=== PATIENT | female | born 1975 | race Caucasian/White ===

== ENCOUNTER 2020-12-27 13:04 | Outpatient (REF) | payer MEDICAID, SELFPAY ==
--- NOTE | ~2020-12-27 | XR_ITS ---
EXAMINATION: XR LUMBOSACRAL SPINE CLINICAL INFORMATION: Low back pain COMPARISON: None TECHNIQUE: Three views of the lumbosacral spine. FINDINGS: There is normal lumbar lordosis. The vertebral heights, alignment and disc heights are normal. No visible acute fracture, dislocation or subluxation seen. There is mild ventral spondylosis at L3-L4 disc level. The paravertebral soft tissues are normal. The SI joints are normal. XR/XR lumbar spine 2-3V IMPRESSION: Ventral spondylosis L3-L4 disc level. No visible acute fracture, dislocation or lytic process seen.
== END 2020-12-27 13:05 | disposition home or self-care (01) ==
LOC: HO.LAB 13:04
PROVIDERS: Visit Provider Family Medicine
DX: M54.5 Low back pain (principal); R10.9 Unspecified abdominal pain
CPT/HCPCS: 72100

== ENCOUNTER 2022-02-07 08:29 | Outpatient (REF) | payer MEDICAID, SELFPAY | END 2022-02-07 08:30 | disposition home or self-care (01) | LOC: HO.US 08:29 | PROVIDERS: PCP Family Medicine; Visit Provider Nurse Practitioner Primary Care | DX: Z13.89 Encounter for screening for other disorder (principal) ==

== ENCOUNTER 2022-02-25 08:07 | Outpatient (REF) | payer MEDICAID, SELFPAY ==
--- NOTE | ~2022-02-25 | US_ITS ---
EXAMINATION: US ABDOMEN COMPLETE CLINICAL INFORMATION: Right lower quadrant and epigastric pain. COMPARISON: CT abdomen and pelvis 06/08/2006 (report only). TECHNIQUE: Real-time imaging of the abdominal viscera. FINDINGS: PANCREAS: Normal. ABDOMINAL AORTA: The proximal, mid, and distal segments are normal in caliber. INFERIOR VENA CAVA: Visualized portions are normal. LIVER: The liver is normal in size. The liver contour is normal. Liver echotexture is normal. No focal hepatic lesion. There is no intrahepatic biliary duct dilatation seen. GALLBLADDER: The gallbladder is physiologically distended. Multiple mobile gallstones are present. No evidence of gallbladder wall thickening or pericholecystic fluid. COMMON BILE DUCT: Normal in caliber measuring 0.2 cm in diameter. RIGHT KIDNEY: Normal. No hydronephrosis. No renal calculi or focal parenchymal lesions. The kidney measures 11.3 cm in maximum dimension. LEFT KIDNEY: Normal. No hydronephrosis. No renal calculi or focal parenchymal lesions. The kidney measures 11.8 cm in maximum dimension. SPLEEN: Normal. The spleen measures 9.7 cm in maximum dimension. FREE FLUID: None. US/US abdomen complete IMPRESSION: Gallstones.
== END 2022-02-25 08:08 | disposition home or self-care (01) ==
LOC: HO.US 08:07
PROVIDERS: PCP Family Medicine; Visit Provider Nurse Practitioner Primary Care
DX: R10.31 Right lower quadrant pain (principal)
CPT/HCPCS: 76700

== ENCOUNTER → 2022-04-10 13:34 | Outpatient (BNVA) | payer MEDICAID, SELFPAY | PROVIDERS: PCP Family Medicine; Referring Provider Family Medicine; Visit Provider Surgery | DX: K80.20 Calculus of gallbladder without cholecystitis without obstruction (principal) | CPT/HCPCS: 99202 ==

== ENCOUNTER 2022-08-14 08:54 | Outpatient (REF) | payer MEDICAID, SELFPAY ==
--- NOTE | ~2022-08-14 | MM_ITS ---
EXAMINATION: MM SCREENING DIGITAL BREAST TOMOSYNTHESIS, BILATERAL CLINICAL INFORMATION: Screening. Asymptomatic. The lifetime risk of breast cancer based on the Tyrer-Cuzick Model is 7%. COMPARISON: Mammography: 03/22/2019, 03/18/2018, 11/20/2016, 09/18/2015 TECHNIQUE: Digital breast tomosynthesis is performed in both the craniocaudal and mediolateral oblique views along with computer-aided detection (CAD). Synthesized 2D images are generated from the tomosynthesis. FINDINGS: There are scattered areas of fibroglandular density (ACR BI-RADS breast composition Category b). Parenchymal pattern is similar to prior studies. There are scattered stable asymmetries without developing density or interval mass or architectural abnormality. Incidental low left axillary tail node again seen. The axilla and skin contours are unremarkable. No significant changes. MM/MM tomosynthesis screening BI IMPRESSION: No mammographic evidence of malignancy. ASSESSMENT: BI-RADS 2: Benign RECOMMENDATION: Routine annual mammography screening. This patient's information was entered into a reminder system with a target due date for their next mammogram.
== END 2022-08-14 08:55 | disposition home or self-care (01) ==
LOC: HO.MAMMO 08:54
PROVIDERS: PCP Family Medicine; Visit Provider Advanced Practice Midwife
DX: Z12.31 Encounter for screening mammogram for malignant neoplasm of breast (principal)
CPT/HCPCS: 77063; 77067

== ENCOUNTER → 2022-09-02 14:43 | Outpatient (BNVA) | payer MEDICAID, SELFPAY | PROVIDERS: PCP Family Medicine; Referring Provider Family Medicine; Visit Provider Surgery | DX: K80.20 Calculus of gallbladder without cholecystitis without obstruction (principal); R10.31 Right lower quadrant pain | CPT/HCPCS: 99212 ==

== ENCOUNTER 2023-09-03 07:55 | Outpatient (REF) | payer MEDICAID, SELFPAY | END 2023-09-03 07:56 | disposition home or self-care (01) | LOC: HO.MAMMO 07:55 | PROVIDERS: PCP Family Medicine; Visit Provider Family Medicine | DX: Z12.31 Encounter for screening mammogram for malignant neoplasm of breast (principal) | CPT/HCPCS: 77063; 77067 ==

== ENCOUNTER → 2023-09-03 08:00 | Outpatient (BNV) | payer MEDICAID, SELFPAY | PROVIDERS: PCP Family Medicine; Visit Provider Radiology Diagnostic Radiology | DX: Z12.31 Encounter for screening mammogram for malignant neoplasm of breast (principal) | CPT/HCPCS: 77063; 77067 ==

== ENCOUNTER 2025-07-21 11:16 | Outpatient (REF) | payer MEDICAID, SELFPAY ==
--- OUTSIDE RECORDS SUMMARY | 2025-07-21 10:30 | XMS_ITS | Encounter Summary ---
Author Organization [employer] Address [address] [facility] [address] [place] [address] Care Team Providers Care Atmospheric Sciences Professor Name Role Phone Adelina Luke MD Primary Care Provider [phone] Encounter Details Date Type Department Care Team (Latest Contact Info) Description 07/21/2025 10:30 AM EDT Office Visit [facility] [address] [place], [place] [phone] Adelina Luke MD [address] [place] [address] Routine general medical examination at a health care facility (Primary Dx); Encounter for well woman exam with routine gynecological exam; History of abnormal cervical Papanicolaou smear; Hypertriglyceridemia; Screening for diabetes mellitus; Vitamin D insufficiency; Breast cancer screening by mammogram; Colon cancer screening; Dietary counseling; Exercise counseling; Class 2 obesity due to excess calories without serious comorbidity with body mass index (BMI) of 36.0 to 36.9 in adult Social History Tobacco Use Types Packs/Day Years Used Date Smoking Tobacco: Never Smokeless Tobacco: Never Alcohol Use Standard Drinks/Week Comments Yes 0 (1 standard drink = 0.6 oz pure alcohol) Rarely, mostly in a social setting Depression Answer Date Recorded Patient Health Questionnaire-9 Score 0 07/21/2025 Patient Health Questionnaire-9 Score 0 07/21/2025 Last PHQ-9: Questionnaire Data Not on file 0 07/21/2025 Housing Stability Answer Date Recorded What is your housing situation today? I have norma kauffman 01/25/[address] you li ve. Do you have problems with any of the following? None of the above 01/25/2025 Food Insecurity Answer Date Recorded Within the past 12 months, y ou worried that your food would run out before you got money to buy more: Never True 01/25/2025 Within the past 12 months,th e food you bought just didn't last and you didn't have enough money to get more: Never True 09/2025 Transportation Answer Date Recorded In the past 12 months, has l ack of transportation kept you from medical appts, meetings, work or from getting things needed for daily living? No 01/25/2025 Utilities Answer Date Recorded In the past 12 months, has t he electric, gas, oil or water company threatened to shut off services in your home? No 01/25/2025 Depression Answer Date Recorded Patient Health Questionnaire-2 Score 0 07/21/2025 Internet Access Answer Date Recorded Internet Access Q1 Yes 01/25/2025 Internet Access Q2 Not on file 01/25/2025 Comments Unknown Sex and Gender Information Value Date Recorded Sex Assigned at Female 09/16/2022 10:18 AM EDT Legal Sex Female 10:18 AM EDT Gender Identity Female 09/16/2022 10:18 AM EDT Sexual Orientation Choose not to disclose 2021 10:18 AM EDT documented as of this encounter Last Filed Vital Signs Vital Sign Reading Time Taken Comments Blood Pressure 124/90 07/21/2025 10:29 AM EDT Pulse 82 07/21/2025 10:29 AM EDT Temperature 36.2 C (97.1 F) 07/21/2025 10:29 AM EDT Respiratory Rate 16 07/21/2025 10:2 9 AM EDT Oxygen Saturation 100% 07/21/2025 10: 29 AM EDT Inhaled Oxygen Concentration - - Weight 88.4 kg (194 lb 12.8 oz) 025 10:29 AM EDT Height 154.9 cm (5' 1 ) 07/21/2025 10:2 9 AM EDT Body Mass Index 36.81 07/21/2025 10:29 AM EDT documented in this encounter Functional Status * Over the past 2 weeks, how often have you been bothered by any of the following problems? Question Answer Date of Assessment Author Patient Health Questionnaire -2 Score 0 07/21/2025 10:30 AM Lucien Gardner MA * Little interest or pleasure in doing things Answer Date of Assessment Author Not at all 07/21/2025 10:30 AM Ariana Gardner MA * Feeling down, depressed, or hopeless Answer Date of Assessment Author Not at all 07/21/2025 10:30 AM Ariana Gardner MA * Trouble falling or staying asleep, or sleeping too much Answer Date of Assessment Author Not at all 07/21/2025 10:30 AM Ariana Gardner MA * Feeling tired or having little energy Answer Date of Assessment Author Not at all 07/21/2025 10:30 AM Ariana Gardner MA * Poor appetite or overeating Answer Date of Assessment Author Not at all 07/21/2025 10:30 AM Ariana Gardner MA * Feeling bad about yourself - or that you are a failure or have let yourself or your family down Answer Date of Assessment Author Not at all 07/21/2025 10:30 AM Ariana Gardner MA * Trouble concentrating on things, such as reading the newspaper or watching television Answer Date of Assessment Author Not at all 07/21/2025 10:30 AM Ariana Gardner MA * Moving or speaking so slowly that other people could have noticed? Or the opposite - being so fidgety or restless that you have been moving around a lot more than usual. Answer Date of Assessment Author Not at all 07/21/2025 10:30 AM Ariana Gardner MA * Thoughts that you would be better off or hurting yourself in some way Answer Date of Assessment Author Not at all 07/21/2025 10:30 AM Ariana Gardner MA * Patient Health Questionnaire-9 Score Answer Date of Assessment Author 0 07/21/2025 10:30 AM Ariana Gardner MA documented as of this encounter Miscellaneous Notes * Assessment & Plan Note - Adelina Luke MD - 07/21/2025 5:44 AM EDTAssociated Problem(s): History of abnormal cervical Papanicolaou smear -Pap Smear on 07/31/22 by Kalyn. ASCUS and negative high-risk HPV - Pt was referred to director building, [facility] in February 2023, NILM with negative high- risk HPV and had a colposcopy in Aug 2023 - Hx REEMA III documented in this encounter Plan of Treatment Scheduled Orders Name Type Priority Associated Diagnoses Orde r Schedule Pap Smear Pathology and Cytology Routine Encounter for well woman exam with routine gynecological exam Ordered: 07/21/2025 HPV High Risk with Reflex to Subtypes Lab Routine Encounter for well woman exam with routine gynecological exam Ordered: 07/21/2025 Lipid Panel with Reflex to Direct LDL Lab Routine Hypertriglyceridemia Expected: 07/21/2025 (Approximate), Expires: 07/21/2026 Hemoglobin A1c Lab Routine Screening for diabetes mellitus Expected: 07/21/2025 (Approximate), Expires: 07/21/2026 Vitamin D, 25-Hydroxy, Total, Immunoassay Lab Routine Vitamin D insufficiency Expected: 07/21/2025 (Approximate), Expires: 07/21/2026 Comprehensive Metabolic Panel Lab Routine Vitamin D insufficiency Class 2 obesity due to excess calories without serious comorbidity with body mass index (BMI) of 36.0 to 36.9 in adult Expected: 07/21/2025 (Approximate), Expires: 07/21/2026 TSH with Reflex to Free T4 Lab Routine Class 2 obesity due to excess calories without serious comorbidity with body mass index (BMI) of 36.0 to 36.9 in adult Expected: 07/21/2025 (Approximate), Expires: 07/21/2026 documented as of this encounter Visit Diagnoses Diagnosis Routine general medical examination at a health care facility- Primary Encounter for well woman exam with routine gynecological exam History of abnormal cervical Papanicolaou smear Hypertriglyceridemia Pure hyperglyceridemia Screening for diabetes mellitus Vitamin D insufficiency Breast cancer screening by mammogram Colon cancer screening Special screening for malignant neoplasms, colon Dietary counseling Dietary surveillance and counseling Exercise counseling Class 2 obesity due to excess calories without serious comorbidity with body mass index (BMI) of 36.0 to 36.9 in adult documented in this encounter Additional Health Concerns Assessment Noted Time PHQ-9 Depression Total Score: 0 07/21/20 25 10:30 AM EDT documented as of this encounter Care Teams Atmospheric Sciences Professor Relationship Specialty Start Date End Date Adelina Luke MD [address] [place] [address] PCP - General Family Medicine 11/17/18 documented as of this encounter
--- OUTSIDE RECORDS SUMMARY | 2025-07-21 12:57 | XMS_ITS | Encounter Summary ---
Author Organization [employer] Address [address] [facility] [facility] [address] [place] [address] Care Team Providers Care Upholstery Sewer Name Role Phone Adelina Luke MD Primary Care Provider [phone] Encounter Details Date Type Department Care Team (Latest Contact Info) Description 07/18/2025 Travel Social History Tobacco Use Types Packs/Day Years Used Date Smoking Tobacco: Never Smokeless Tobacco: Never Alcohol Use Standard Drinks/Week Comments Yes 0 (1 standard drink = 0.6 oz pure alcohol) Rarely, mostly in a social setting Housing Stability Answer Date Recorded What is your housing situation today? I have norma jamari 01/25/[address] you li [...] off services in your home? No 01/25/2025 Internet Access Answer Date Recorded Internet Access Q1 Yes 01/25/2025 Internet Access Q2 Not on file 01/25/2025 Comments Unknown Sex and Gender Information Value Date Recorded Sex Assigned at Female 09/16/2022 10:18 AM EDT Legal Sex Female 10:18 AM EDT Gender Identity Female 09/16/2022 10:18 AM EDT Sexual Orientation Choose not to disclose 2021 10:18 AM EDT documented as of this encounter Plan of Treatment Not on file documented as of this encounter Visit Diagnoses Not on filedocumented in this encounter Care Teams Upholstery Sewer Relationship Specialty Start Date End Date Adelina Luke MD [address] [place] [phone] PCP - General Family Medicine 11/17/18 documented as of this encounter
--- OUTSIDE RECORDS SUMMARY | 2025-07-21 12:58 | XMS_ITS | Encounter Summary ---
Author Organization [employer] Address [address] [facility] [address] [place] [address] Care Team Providers Care Pneumatic Deicer Inspector Name Role Phone Adelina Luke MD Primary Care Provider [phone] Encounter Details Date Type Department Care Team (Latest Contact Info) Description 07/21/2025 Travel Social History Tobacco Use Types Packs/Day [...] AM EDT documented as of this encounter Functional Status * Over the [...] Author Not at all 07/21/2025 10:30 AM EDT Ariana Oliveira MA * Thoughts that you would be better off or hurting yourself in some way Answer Date of Assessment Author Not at all 07/21/2025 10:30 AM EDT Ariana Oliveira MA * Patient Health Questionnaire-9 Score Answer Date of Assessment Author 0 07/21/2025 10:30 AM EDT Ariana Oliveira MA documented as of this encounter Plan of Treatment Not on file documented as of this encounter Visit Diagnoses Not on filedocumented in this encounter Additional Health Concerns Assessment Noted Time PHQ-9 Depression Total Score: 0 07/21/20 25 10:30 AM EDT documented as of this encounter Care Teams Pneumatic Deicer Inspector Relationship Specialty Start Date End Date Adelina Luke MD [address] [place] [address] PCP - General Family Medicine 11/17/18 documented as of this encounter
--- OUTSIDE RECORDS SUMMARY | 2025-07-21 12:58 | XMS_ITS | Encounter Summary ---
Author Organization [employer] Address [address] [facility] 7[address] [place] [address] Care Team Providers Care Finish Production Manager Name Role Phone Adelina Luke MD Primary Care Provider [phone] Reason for Visit * Reason Onset Date Comments Insurance 07/19/2025 Encounter Details Date Type Department Care Team ([facility] st Contact Info) Description 07/19/2025 Telephone [facility] [address] [place], [place] [phone] Adelina Luke MD [address] [place] [address] Insurance Social History Tobacco Use Types Packs/Day Years [...] AM EDT documented as of this encounter Miscellaneous Notes * Telephone Encounter - Myriam Fischer - 07/19/2025 2:16 PM EDT Called Patient, advised insurance brunilda file is assigned to [employer]. Patient recalls plan being change but was not aware we do not accepts [facility] linked with [employer]. Patient will come into insurance enrollment tomorrow to change. documented in this encounter Plan of Treatment Not on file documented as of this encounter Visit Diagnoses Not on filedocumented in this encounter Care Teams Finish Production Manager Relationship Specialty Start Date End Date Adelina Luke MD [address] [place] [address] PCP - General Family Medicine 11/17/18 documented as of this encounter
--- OUTSIDE RECORDS SUMMARY | 2025-07-21 12:58 | XMS_ITS | Encounter Summary ---
Author Organization [employer] Address [address] [facility] 7t [place] [address] Care Team Providers Care Resaw Tailer Name Role Phone Adelina Luke MD Primary Care Provider [phone] Reason for Visit * Reason Onset Date Comments Appointment Request 12/01/2024 Encounter Details Date Type Department Care Team ([facility] st Contact Info) Description 12/01/2024 Telephone [facility] MEDICINE [address] [place], [place] [phone] Adelina Luke MD [address] [place] [address] Appointment Request Social History Tobacco Use Types Packs/Day Years Used Date Smoking Tobacco: Never Smokeless Tobacco: Never Alcohol Use Standard Drinks/Week Comments Yes 0 (1 standard drink = 0.6 oz pure alcohol) Rarely, mostly in a social setting Housing Stability Answer Date Recorded What is your housing situation today? I have norma kauffman 01/12/[address] you li ve. Do you have problems with any of the following? None of the above 01/12/2024 Food Insecurity Answer Date Recorded Within the past 12 months, y ou worried that your food would run out before you got money to buy more: Never True 01/12/2024 Within the past 12 months,th e food you bought just didn't last and you didn't have enough money to get more: Never True Transportation Answer Date Recorded In the past 12 months, has l ack of transportation kept you from medical appts, meetings, work or from getting things needed for daily living? No 01/12/2024 Utilities Answer Date Recorded In the past 12 months, has t he electric, gas, oil or water company threatened to shut off services in your home? No 01/12/2024 Comments Unknown Sex and Gender Information Value Date Recorded Sex Assigned at Female 09/16/2022 10:18 AM EDT Legal Sex Female 10:18 AM EDT Gender Identity Female 09/16/2022 10:18 AM EDT Sexual Orientation Choose not to disclose 2021 10:18 AM EDT documented as of this encounter Miscellaneous Notes * Telephone Encounter - Flory Hurt - 12/01/2024 2:24 PM EST Tc from pt requesting a physical , pt denies concerns documented in this encounter Plan of Treatment Not on file documented as of this encounter Visit Diagnoses Not on filedocumented in this encounter Care Teams Resaw Tailer Relationship Specialty Start Date End Date Adelina Luke MD [address] [place] [address] PCP - General Family Medicine 11/17/18 documented as of this encounter
--- OUTSIDE RECORDS SUMMARY | 2025-07-21 12:58 | XMS_ITS | Clinical Summary ---
Author Organization [facility] Address [address] [place] [address] Care Team Providers Care Employee Health Nurse Name Role Phone Unavailable Primary Care Provider Unavailabl e Social History Tobacco Use Types Packs/Day Years Used Date Smoking Tobacco: Never Assessed Comments Unknown Sex and Gender Information Value Date Recorded Sex Assigned at Not on file Legal Sex Female 8:25 AM EST Gender Identity Not on file Sexual Orientation Not on file Plan of Treatment Health Maintenance Due Date Last Done Comments Breast Cancer Screening 1974 DTaP,Tdap,and Td Vaccines (1 - Tdap) 1993 Hepatitis B Vaccines (1 of 3 - 19+ 3-dose series) 1993 Cervical Cancer Screening: P ap Smear 1995 Pneumococcal Vaccine: 50+ Ye ars (1 of 1 - PCV) 2024 Zoster Vaccines (1 of 2) 2024 Depression Screening 11/17/2024 COVID-19 Vaccine ( - 2023-2 5 season) 2025 Influenza Vaccine (#1) 2025 HIB Vaccines Aged Out No longer eligi ble based on patient's age to complete this topic HPV Vaccines Aged Out No longer eligi ble based on patient's age to complete this topic Hepatitis A Vaccines Aged Out No long er eligible based on patient's age to complete this topic IPV Vaccines Aged Out No longer eligi ble based on patient's age to complete this topic MMR Vaccines Aged Out No longer eligi ble based on patient's age to complete this topic Meningococcal ACWY Vaccine Aged Out N o longer eligible based on patient's age to complete this topic Meningococcal B Vaccine Aged Out No l onger eligible based on patient's age to complete this topic RSV Immunization Patients Un gigi 20 months Aged Out No longer eligible b ased on patient's age to complete this topic Varicella Vaccines Aged Out No longer eligible based on patient's age to complete this topic
--- OUTSIDE RECORDS SUMMARY | 2025-07-21 12:58 | XMS_ITS | Clinical Summary ---
Author Organization [employer] Address [address] [facility] 7t [place] [address] Care Team Providers Care Steel Fitter Name Role Phone Adelina Luke MD Primary Care Provider [phone] Allergies No known active allergies Medications topiramate (Topamax) 25 MG tablet Take by mouth at bedtime. 08/07/2021 Active scopolamine (Transderm-Scop ) 1 MG/3DAYS patch [address] 1 patch on the skin every 3rd (third) day. 10 patch 07/21/2025 Active phentermine 30 MG capsule Take 1 capsule (30 mg) by mouth before breakfast. 30 capsule 07/21/2025 Active Active Problems Problem Noted Date Diagnosed Date History of abnormal cervical Papanicolaou smear 10/21/2022 Assessment & Plan (07/21/2025 5:44 AM EDT): -Pap Smear on 07/31/22 by Kalyn. ASCUS and negative high-risk HPV - Pt was referred to baby formula worker, PAP in February 2023, NILM with negative high- risk HPV and had a colposcopy in Aug 2023 - Hx REEMA III Assessment & Plan (07/30/2023 5:20 AM EDT): -Pap Smear on 07/31/22 by Kalyn. ASCUS and negative high-risk HPV - Pt was referred to baby formula worker and had a colposcopy in Aug 2023 - Hx REEMA III Assessment & Plan (01/14/2023 11:18 AM EST): -Pap Smear on 07/31/22 by Kalyn CORONADO with REEMA III -HPV: negative -followed by baby formula worker Vitamin D insufficiency 06/15/2018 Assessment & Plan (07/30/2023 11:07 AM EDT): Will update before next visit -continue supplementation Assessment & Plan (01/14/2023 10:42 AM EST): Continue Vitamin D supplementation -will check labs Obesity 05/01/2016 Assessment & Plan (08/23/2023 6:03 PM EDT): Last A1c, 5.1% on 12/27/21 No HTN, ADRIANA, or DM / prediabetes Work on lifestyle modifications Allergic rhinitis 10/19/2015 Assessment & Plan (01/16/2023 12:03 AM EST): -pt dislikes medication Hypertriglyceridemia 10/19/2015 Assessment & Plan (08/23/2023 6:03 PM EDT): Last Lipid Profile 01/14/23 TC 241; TG 258; HDL 50; LDL 149 -Will update lab -continue working on lifestyle modifications -will recheck in 1 year Assessment & Plan (01/14/2023 11:17 AM EST): Last FLP on 12/27/21 showed - TC 266; TG 378; HDL 39; LDL 163 -Will update lab Last A1c, 5.1% on 12/27/21 -continue working on lifestyle modifications -will recheck in 1 year Resolved Problems Problem Noted Date Diagnosed Date Resolved Date Nonintractable headache 01/14/2023 10/0 05/2023 Assessment & Plan (01/14/2023 10:40 AM EST): -Worsens when stress is increased -Continue Totipalmate 25mg daily Anxiety 01/14/2023 08/23/2023 Assessment & Plan (01/14/2023 11:14 AM EST): Patient has long h/o Anxiety and Panic Attacks -Previously seen by Therapist and developed healthy coping skills -continue healthy coping skills Encounters Date Type Department Care Team Description 07/21/2025 10:30 AM EDT Office Visit [address] [address] Adelina Luke MD Routine general medical examination at a health [...] (BMI) of 36.0 to 36.9 in adult 07/21/2025 Travel 07/19/[address] [address] Adelina Luke MD Insurance 07/18/2025 Travel 07/14/2025 Patient Outreach [address] [address] Adelina Luke MD Pre-visit Planning (SDOH screening completed on 01/25/2025) 06/14/[address] [address] Adelina Luke MD Appointment Request from Last 3 Months Immunizations Immunization Administration Dates Next Due Hep B, adult 05/07/2018, 8,10/19/2015,06/23/2014, Moderna Covid-19 Vaccine 12+ 04/18/2021,03/21/20 21 Tdap 01/14/2023,04/07/2013 Social History Tobacco Use Types Packs/Day Years Used Date Smoking Tobacco: Never Smokeless Tobacco: Never Tobacco Cessation:Counseling Given: Not Answered Alcohol Use Standard Drinks/Week Comments Yes 0 [...] not to disclose 2021 10:18 AM EDT Last Filed Vital Signs Vital Sign Reading [...] Mass Index 36.81 07/21/2025 10:29 AM EDT Plan of Treatment Health Maintenance Due Date Last Done Comments CT Colonography 1974 Colonoscopy 1974 Colorectal Cancer Screening 1974 FIT DNA/Cologuard 1974 FIT 1974 FOBT 1974 HIV Screening 1974 Sigmoidoscopy 1974 Family Planning (PISQ) 1989 Hepatitis C Screening 1992 Pneumococcal Vaccine: 50+ Years (1 of 1 - PCV) 2024 Zoster Vaccines (1 of 2) 2024 COVID-19 Vaccine (3 - season) 2025 04/18/2021, 03/21/2021 Influenza Vaccine (#1) 2025 Pap Smear 07/31/2025 07/31/2022, 09/15/2020 Mammogram 09/03/2025 09/03/2023, 05/2019, 03/19/2018 SDOH Screening 01/25/2026 01/25/2025 Disability Screening 07/20/2026 07/20/2025 Alcohol/Substance Use Screening 07/21/2026 07/21/2025 Depression Screening 07/21/2026 07/21/2025, 07/21/20 25 Tobacco Screening 07/21/2026 07/21/2025 Cervical Cancer Screening 07/31/2027 HPV/Cotest 07/31/2027 07/31/2022, 11/19, 01/29/2018 Lipid Panel 01/14/2028 01/14/2023, 12/27/2020 DTaP/Tdap/Td Vaccines (3 - Td or Tdap) 01/14/2033 01/14/2023, 04/07/2013 RSV Patients and Patients Aged 60 years or older (1 - 1-dose 75+ series) 2049 Hepatitis B Vaccines Completed 05/07/2018, 04/06/2018, 10/19/2015, Additional history exists HIB Vaccines Aged Out No longer eligi [...] patient's age to complete this topic Meningococcal Vaccine Aged Out No armando sugar eligible based on patient's age to complete this topic RSV under 20 months Aged Out No longe r eligible based on patient's age to complete this topic Rotavirus Vaccines Aged Out No longer eligible based on patient's age to complete this topic Procedures Procedure Name Priority Date/Time Associated Diagnosis Comments BI MAMMOGRAM SCREENING TOMOSYNTHESIS BILATERAL Routine 09/03/2023 8:11 AM EDT LIPID PANEL WITH REFLEX TO DIRECT LDL Routine 01/14/2023 11:12 AM EST Hypertriglyceridem ia THINPREP IMAGING PAP AND HPV MRNA E6/E7 WITH REFLEX TO HPV 16,18/45 Routine 07/31/2022 9:00 AM EDT from Last 3 Months or Most Recently Relevant to Health Maintenance Results * BI Mammogram Screening Tomosynthesis Bilateral (09/03/2023 8:11 AM EDT) Anatomical Region Laterality Modality Breast Bilateral Mammography 09/03/2023 8:11 AM EDT Narrative 09/22/2023 12:39 PM EST [facility]rosl[facility] [address] [place] [address] Mammography Report Signed Patient: Christianne Catalan MR#: [id number] : 1975 Acct:[id number] Age/Sex: 48 / F ADM Date: 09/03/23 Loc: [facility] Attending Dr: Adelina Luke MD Ordering Physician: Adelina Luke MD Results: 1Negative Date of Service: 09/03/23 Follow Up: 1 Year From Orig ina Mammogram Procedure(s): MM tomosynthesis screening BI Accession Number(s): [id number] cc: Adelina Luke MD EXAMINATION: MM SCREENING DIGITAL BREAST TOMOSYNTHESIS, BILATERAL CLINICAL INFORMATION: Screening. Asymptomatic. COMPARISON: Mammography: This study is compared with prior exams dating back to 2018. TECHNIQUE: Digital breast tomosynthesis is performed in both the craniocaudal and mediolateral oblique views along with computer-aided detection (CAD). Synthesized 2D images are generated from the tomosynthesis. FINDINGS: There are scattered areas of fibroglandular density (ACR BI-RADS breast composition Category b). There are no significant masses, abnormal calcifications, or other abnormalities. MM/MM tomosynthesis screening BI IMPRESSION: No mammographic evidence of malignancy. ASSESSMENT: BI-RADS BI-RADS 1 - Negative RECOMMENDATION: Routine annual mammography screening. 1 year F/U This examination should not preclude the clinical evaluation of a suspicious palpable abnormality. This patient's information was entered into a reminder system with a target due date for their next mammogram. Dictated By: June Jimenez MD Signed By: <Electronically signed by June Jimenez MD in OV> 09/22/23 1235 DD/ 0811 TD/TT: Digital Operations Analyst: Procedure Note Donotuseinterpreter, Image - 09/23/2023 [facility] [address] [place], [place] [address] Mammography Report Signed Patient: Christianne CatalanMR#: [id number] : 1975Acct:[id number] Age/Sex: 48 / FADM Date: 09/03/23 Loc: [facility] Attending Dr: Adelina Luke MD Ordering Physician: [facility]elina Luke [facility] 1[facility] Date of Service: 09/03/23Follow Up: 1 Year From Orig ina Mammogram Procedure(s): MM tomosynthesis screening BI Accession Number(s): [id number] cc: Adelina Luke MD EXAMINATION: MM SCREENING DIGITAL BREAST TOMOSYNTHESIS, BILATERAL CLINICAL INFORMATION: Screening. Asymptomatic. COMPARISON: Mammography: This study is compared with prior exams dating back to 2018. TECHNIQUE: Digital breast tomosynthesis is performed in both the craniocaudal and mediolateral oblique views along with computer-aided detection (CAD). Synthesized 2D images are generated from the tomosynthesis. FINDINGS: There are scattered areas of fibroglandular density (ACR BI-RADS breast composition Category b). There are no significant masses, abnormal calcifications, or other abnormalities. MM/MM tomosynthesis screening BI IMPRESSION: No mammographic evidence of malignancy. ASSESSMENT: BI-RADS BI-RADS 1 - Negative RECOMMENDATION: Routine annual mammography screening. 1 year F/U This examination should not preclude the clinical evaluation of a suspicious palpable abnormality. This patient's information was entered into a reminder system with a target due date for their next mammogram. Dictated By: June Jimenez MD Signed By: <Electronically signed by June Jimenez MD in OV> 09/22/23 1235 DD/ 0811 TD/TT: Digital Operations Analyst: Adelina Luke MD IMG BI PROCEDURES Edited Result - Final * (ABNORMAL) Lipid Panel with Reflex to Direct LDL (01/14/2023 11:12 AM EST) Cholesterol, Total 241(H) <200 mg/dL [facility] HDL Cholesterol 50 > OR = 50 mg/dL [facility] Triglycerides 258(H) <150 mg/dL [facility] Comment: If a non-fasting specimen was collected, consider repeat triglyceride testing on a fasting specimen if clinically indicated. Lulú et al. J. of Clin. Lipidol. 2015;9:129-169. LDL Cholesterol 149(H) mg/dL (calc) [facility] Comment: Reference range: <100 Desirable range <100 mg/dL for primary prevention; <70 mg/dL for patients with CHD or diabetic patients with > or = 2 CHD risk factors. LDL-C is now calculated using the Yosi-Pittman calculation, which is a validated novel method providing better accuracy than the Friedewald equation in the estimation of LDL-C. Yosi DEL REAL et al. ASYA. 2013;310(19): 9517-7166 (http://education.Invistics/faq/RVM400) Chol/HDLC Ratio 4.8 <5.0 (calc) [facility] Non-HDL Cholesterol 191(H) <130 mg/dL (calc) [facility] Comment: For patients with diabetes plus 1 major ASCVD risk factor, treating to a non-HDL-C goal of <100 mg/dL (LDL-C of <70 mg/dL) is considered a therapeutic option. 01/14/2023 11:1 2 AM EST 01/14/2023 11:13 AM EST Narrative [facility] - 01/15/2023 1:21 AM EST FASTING:NO FASTING: NO us Adelina Luke MD LAB BLOOD ORDERABLES Final Resul t [address] [place] [address] [facility] [address] [facility], ([address]) [place] [address] * (ABNORMAL) THINPREP TIS PAP AND HPV mRNA E6/E7 WITH REFLEX TO HPV 16,18/45 (07/31/2022 9:00 AM EDT) Clinical Information: None given [facility] COMMENT SEE COMMENT [facility] Comment: EXPLANATORY NOTE: The Pap is a screening test for cervical cancer. It is not a diagnostic test and is subject to false negative and false positive results. It is most reliable when a satisfactory sample, regularly obtained, is submitted with relevant clinical findings and history, and when the Pap result is evaluated along with historic and current clinical information. COMMENT: This Pap test has been evaluated with computer assisted technology. [facility] Maxillofacial Prosthodontist : SEE COMMENT [facility] Comment: HAI CORTES(ASCP) CT screening location: [place] [address] General Categorization: EPITHELIAL CELL ABNORMALITY(A) [facility] HPV nRNA E6/E7 Not Detected Not Detected [facility] Comment: Methodology: Organ Tuner-Mediated Amplification This assay detects E6/E7 viral messenger RNA (mRNA) from 14 high-risk HPV types (16,18,31,33,35,39,45,51,52,56,58,59,66,68). Cervical sources are required for HPV testing. If a vaginal source from a patient who has had a total hysterectomy with removal of cervix was submitted, please contact the testing laboratory for alternative testing options. For additional information, please refer to http://education.Social Fabrics/faq/FSR750c7 (This link if provided for information/ educational purposes only.) Interpretation/R esult: Atypical Squamous Cells of Undetermined Significance (ASC-US)(A) [facility] LMP: 07/19/2022 [facility] PATHOLOGIST: SEE COMMENT [facility] Comment: Pedro Gaitan M.D., Board Certified in Anatomic and Clinical Pathology (electronic signature) Consulting Pathologist [facility] [address] [place] [id number] Prev. BX: CIN3 [facility] Prev. PAP: 2020 NOL/HPV - 2019 NIL HPV - 2018 ASCU [facility] SOURCE: None given [facility] Statement Of Adequacy: SEE COMMENT [facility] Comment: Satisfactory for evaluation. Endocervical/transformation zone component present. 07/31/2022 9:00 AM EDT us Kalyn JHA LAB PATHOLOGY ORDERABLES Final Result [facility] [address] [place] [address], from Last 3 Months or Most Recently Relevant to Health Maintenance Insurance [address] [place], [place] [address] Care Teams Steel Fitter Relationship Specialty Start Date End Date Adelina Luke MD [address] [place] [address] PCP - General Family Medicine 11/17/18
--- OUTSIDE RECORDS SUMMARY | 2025-07-21 12:58 | XMS_ITS | Encounter Summary ---
Author Organization [employer] Address [address] [place] [address] [address]t [place] [address] Care Team Providers Care Tankerman Name Role Phone Adelina Luke MD Primary Care Provider [phone] Encounter Details Date Type Department Care Team (Late st Contact Info) Description 04/02/2023 Abstract [facility] MEDICINE [address] [place], [place] [phone] Adelina Luke MD [address] [place] [address] Social History Tobacco Use Types Packs/Day Years Used Date Smoking Tobacco: Never Smokeless Tobacco: Never Alcohol Use Standard Drinks/Week Comments Yes 0 (1 standard drink = 0.6 oz pure alcohol) Rarely, mostly in a social setting Comments Unknown Sex and Gender Information Value [...] on filedocumented in this encounter Care Teams Tankerman Relationship Specialty Start Date End Date Adelina Luke MD [address] [place], [place] [phone] PCP - General Family Medicine 11/17/18 documented as of this encounter
[2025-07-21 13:50] LABS: Hemoglobin A1C 122.2034 umol/L; Total Hemoglobin (HGBA1C) 3545.7897 umol/L
[2025-07-21 14:07] LABS: Alanine Aminotransferase 23 U/L (0-31); Albumin Level 4.2 g/dL (3.5-5.0); Alkaline Phosphatase 84 U/L (39-117); Anion Gap 11 (12-20); Aspartate Amino Transferase 44 U/L (5-31); Blood Urea Nitrogen 10 mg/dL (9-16); Calcium 8.9 mg/dL (8.4-10.2); Carbon Dioxide 25 mmol/L (22-29); Chloride 108 mmol/L (96-108); Cholesterol 233 mg/dL (<200); Estimated Glomerular Filt Rate > 60; HDL Cholesterol 39 mg/dL (>40); Potassium 4.5 mmol/L (3.3-5.1); Sodium 139 mmol/L (135-145); Total Protein 7.5 g/dL (6.5-8.0); Triglycerides 344 mg/dL (<150)
[2025-07-21 14:14] LABS: Reflex LDLD? No
== END 2025-07-21 11:17 | disposition home or self-care (01) ==
LOC: HO.HHCL 11:16
PROVIDERS: PCP Family Medicine; Visit Provider Family Medicine
DX: I10 Essential (primary) hypertension (principal); E66.812 Obesity, class 2; E78.1 Pure hyperglyceridemia; E55.9 Vitamin D deficiency, unspecified; Z68.36 Body mass index [BMI] 36.0-36.9, adult; Z13.1 Encounter for screening for diabetes mellitus
CPT/HCPCS: 36415; 80053; 80061; 82306; 83036; 84443

== ENCOUNTER 2025-07-21 16:53 | Outpatient (REF) | payer MEDICAID, SELFPAY ==
--- OUTSIDE RECORDS SUMMARY | 2025-07-21 10:30 | XMS_ITS | Encounter Summary ---
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, NILM with negative high- [...] exam with routine gynecological exam Ordered: 07/21/2025 documented as of this encounter Procedures Procedure Name Priority Date/Time Associated Diagnosis Comments VITAMIN D,25-OH,TOTAL,IA Routine 07/21/2025 11:29 AM EDT Vitamin D insufficiency TSH W/REFLEX TO FT4 Routine 07/21/2025 1 1:29 AM EDT Class 2 obesity due to excess calories without serious comorbidity with body mass index (BMI) of 36.0 to 36.9 in adult LIPID PANEL WITH REFLEX TO DIRECT LDL Routine 07/21/2025 11:29 AM EDT Hypertriglyceridemia HEMOGLOBIN A1C Routine 07/21/2025 11:29 AM EDT Screening for diabetes mellitus COMPREHENSIVE METABOLIC PANEL Routine 07/21/2025 11:29 AM EDT Vitamin D insufficiency Class 2 obesity due to excess calories without serious comorbidity with body mass index (BMI) of 36.0 to 36.9 in adult documented in this encounter Results * TSH with Reflex to Free T4 (07/21/2025 11:29 AM EDT) TSH reflex Free T4 1.64 0.32 - 4.0 uIU/mL [facility] Blood 07/21/2025 11:2 9 AM EDT 07/21/2025 1:28 PM EDT us Adelina Luke MD LAB BLOOD ORDERABLES Final Resul t Performing Organization Address [facility]/ZIP Co de Phone Number [facility] [address] [place] [address] [phone] * (ABNORMAL) Comprehensive Metabolic Panel (07/21/2025 11:29 AM EDT) Sodium 139 135 - 145 mmol/L [facility] Potassium 4.5 3.3 - 5.1 mmol/L [facility] Chloride 108 96 - 108 mmol/L [facility] Carbon Dioxide 25 22 - 29 mmol/L [facility] Anion Gap 11(L) 12 - 20 [facility] Urea Nitrogen (BUN) 10 9 - 16 mg/dL [facility] Creatinine, Serum 0.80 0.5 - 1.4 mg/dL [facility] Estimated Glomerular Filt Rate >60 [facility] Comment:Chronic Kidney Disea se: Estimated GFR < 60 mL/min/1.09c6Qeyhct Kidney Disease: Estimated GFR < 15 mL/min/1.73m2 Glucose 99 60 - 115 mg/dL [facility] Calcium 8.9 8.4 - 10.2 mg/dL [facility] Bilirubin, Total 0.5 0.0 - 1.0 mg/dL [facility] Aspartate Amino Transferase 44(H) 5 - 31 U/L [facility] Alanine Aminotransferase 23 0 - 31 U/L [facility] Total Protein 7.5 6.5 - 8.0 g/dL [facility] Albumin Level 4.2 3.5 - 5.0 g/dL [facility] Alkaline Phosphatase 84 39 - 117 U/L [facility] Blood Venous blood specimen / Unknown 07/21/2025 11:29 AM EDT 07/21/2025 1:28 PM EDT us Adelina Luke MD LAB BLOOD ORDERABLES Final Resul t Performing Organization Address [facility]/ZIP Co de Phone Number [facility] [address] [place] [address] [phone] * Vitamin D, 25-Hydroxy, Total, Immunoassay (07/21/2025 11:29 AM EDT) Vitamin D 25-OH Total 36.6 >30 ng/mL [facility] Comment: Health Based Reference Values*< 20 ng/mL Sozsavogu88-11 ng/mL Insufficient> 30 ng/mL Sufficient*Kelly HUNTLEY. N Engl J Med. 2007;357:266-280There is no well-established upper level of normal vitamin Dlevels. Some laboratories use 50 ng/mL as an upper limit ofnormal. However, toxicity is patient-dependent and may occurat any level. Careful correlation with the patient'spresentation is necessary and, if there is concern forvitamin D toxicity, treatment should be consideredirrespective of the serum level.Care must be taken in interpreting Vitamin D results fromdifferent laboratories and methodologies. Published datademonstrated that results from patients undergoinghemodialysis may show a negative bias when tested withvarious automated 25-OH vitamin D assays when compared toLC-MS/MS.When testing samples from patients whose predominant form ofVitamin D is Vitamin D2, such as patients receiving VitaminD2 supplementation, results that are subtherapeutic shouldbe confirmed with another method such as LC-MS/MS. Blood Venous blood specimen / Unknown 07/21/2025 11:29 AM EDT 07/21/2025 1:28 PM EDT us Adelina Luke MD LAB BLOOD ORDERABLES Final Resul t [facility] [address] [place] [phone] * Hemoglobin A1c (07/21/2025 11:29 AM EDT) Hemoglobin A1c 5.3 <6.0 % [facility] Comment:Hemoglobin A1C Refer ence Range Adults: 4.8 - 6.0 % Non diabetic: < 6.0 % Goal: < 7.0 %Additional Action Suggested: > 8.0 %Note: Hemoglobin A1c results are invalid for patients with abnormal amounts of HbF. Blood transfusions may impact the HbA1c concentration in the patient sample. Estimated Average Glucose 105 mg/dL [facility] Comment:eAG = Estimated ave rage glucose which is %A1C expressed asaverage glucose, using the formula of the A5O-XtiqyttBxkqmbr Glucose study (ADAG), Diabetes Care, Vol.31,#8,Jun. 2007 Blood Venous blood specimen / Unknown 07/21/2025 11:29 AM EDT 07/21/2025 1:28 PM EDT Adelina Luke MD LAB BLOOD ORDERABLES Final Resul t [facility] [address] [place] [phone] * (ABNORMAL) Lipid Panel with Reflex to Direct LDL (07/21/2025 11:29 AM EDT) Triglycerides 344(H) <150 mg/dL [facility] Comment:Desirable Triglyceri de: less than 150 mg/dLBorderline High Triglyceride 150-199 mg/dLHigh Triglyceride: 200-499 mg/dLVery High Triglyceride: greater than or equal to 5OO mg/dL Cholesterol 233(H) <200 mg/dL [facility] Comment:Desirable Cholestero l: less than 200 mg/dLBorderline High Cholesterol: 200-239 mg/dLHigh Cholesterol: greater than 239 mg/dL LDL Cholesterol Calculated 126(H) <100 mg/dL [facility] Comment:Desirable LDL: less than 100 mg/dLNear Optimal/Above Optimal LDL: 110- 129 mg/dLBorderline High LDL: 130-159 mg/dLHigh LDL: 160-189 mg/dLVery High LDL: greater than or equal to 190 mg/dL HDL Cholesterol 39(L) >40 mg/dL [facility] Comment:Desirable HDL: great er than 40 mg/dL Note: This HDL assay may give artificially low results in patients with liver disease. Blood 07/21/2025 11:2 9 AM EDT 07/21/2025 1:28 PM EDT Adelina Luke MD LAB BLOOD ORDERABLES Final Resul t [facility] [address] [place] [phone] documented in this encounter Visit Diagnoses Diagnosis Routine general [...] documented as of this encounter Care Teams Director Of Partner Marketing Relationship Specialty Start Date End Date Adelina Luke MD [address] [place] [phone] PCP - General Family Medicine 11/17/18 documented as of this encounter
--- OUTSIDE RECORDS SUMMARY | 2025-07-21 16:57 | XMS_ITS | Encounter Summary ---
Author Organization [employer] Address [address] [facility] [address] [place] [address] Care Team Providers Care Scan Coordinator Name Role Phone Adelina Luke MD Primary Care Provider [phone] Encounter Details Date Type Department Care Team [...] on filedocumented in this encounter Care Teams Scan Coordinator Relationship Specialty Start Date End Date Adelina Luke MD [address] [place] [address] PCP - General Family Medicine 11/17/18 documented as of this encounter
--- OUTSIDE RECORDS SUMMARY | 2025-07-21 16:57 | XMS_ITS | Encounter Summary ---
Author Organization [employer] Address [address] [facility] 7t [place] [address] Care Team Providers Care It Network Administrator Name Role Phone Adelina Luke MD Primary Care Provider [phone] Reason for Visit * Reason Onset Date Comments Appointment Request 12/01/2024 Encounter Details Date Type Department Care Team ([facility] st Contact Info) Description 12/01/2024 Telephone [facility] MEDICINE [address] [place], [place] [phone] Adelina Luke MD [address] [place] [address] Appointment Request Social History Tobacco Use Types [...] on filedocumented in this encounter Care Teams It Network Administrator Relationship Specialty Start Date End Date Adelina Luke MD [address] [place] [phone] PCP - General Family Medicine 11/17/18 documented as of this encounter
--- OUTSIDE RECORDS SUMMARY | 2025-07-21 16:57 | XMS_ITS | Encounter Summary ---
Author Organization [employer] Address [address] [facility] 7t [place] [address] Care Team Providers Care Staffing Specialist Name Role Phone Adelina Luke MD Primary Care Provider [phone] Encounter Details Date Type Department Care Team [...] documented as of this encounter Care Teams Staffing Specialist Relationship Specialty Start Date End Date Adelina Luke MD [address] [place] [address] PCP - General Family Medicine 11/17/18 documented as of this encounter
--- OUTSIDE RECORDS SUMMARY | 2025-07-21 16:57 | XMS_ITS | Clinical Summary ---
Author Organization [facility] Address [address] [place] [address] Care Team Providers Care Subway Operator Name Role Phone Unavailable Primary Care Provider [...]
--- OUTSIDE RECORDS SUMMARY | 2025-07-21 16:57 | XMS_ITS | Encounter Summary ---
Author Organization [employer] Address [address] [place] [address] 7t [place] [address] Care Team Providers Care Soaking Tank Worker Name Role Phone Adelina Luke MD Primary Care Provider [phone] Encounter Details Date Type Department Care Team (Late st Contact Info) Description 04/02/2023 Abstract [facility] MEDICINE [address] [place], [place] [phone] Adelina Luke MD [address] [place] [address] Social History Tobacco Use Types Packs/Day Years [...] on filedocumented in this encounter Care Teams Soaking Tank Worker Relationship Specialty Start Date End Date Adelina Luke MD [address] [place], [place] [phone] PCP - General Family Medicine 11/17/18 documented as of this encounter
--- OUTSIDE RECORDS SUMMARY | 2025-07-21 16:57 | XMS_ITS | Encounter Summary ---
Author Organization [employer] Address [address] [facility] 7t [place] [address] Care Team Providers Care Oil Treater Name Role Phone Adelina Luke MD Primary Care Provider Reason for Visit * Reason Onset Date Comments Insurance 07/19/2025 Encounter Details Date Type Department Care Team ([facility] st Contact Info) Description 07/19/2025 Telephone [facility] MEDICINE [address] [place], [place] [phone] Adelina Luke MD [address] [place] [address] Insurance Social History Tobacco Use Types Packs/Day [...] on filedocumented in this encounter Care Teams Oil Treater Relationship Specialty Start Date End Date Adelina Luke MD [address] [place] [address] PCP - General Family Medicine 11/17/18 documented as of this encounter
--- OUTSIDE RECORDS SUMMARY | 2025-07-21 16:57 | XMS_ITS | Clinical Summary ---
Author Organization [employer] Address [address] [facility] [address] [place] [address] Care Team Providers Care Publishing Editor Name Role Phone Adelina Luke MD Primary Care Provider [phone] Allergies No known active allergies Medications topiramate [...] high-risk HPV - Pt was referred to accounting administrative assistant, PAP in February 2023, NILM with negative high- risk HPV and had a colposcopy in Aug 2023 - Hx REEMA III Assessment & Plan (07/30/2023 5:20 AM EDT): -Pap Smear on 07/31/22 by Kalyn. ASCUS and negative high-risk HPV - Pt was referred to accounting administrative assistant and had a colposcopy in Aug 2023 - Hx REEMA III Assessment & Plan (01/14/2023 11:18 AM EST): -Pap Smear on 07/31/22 by Kalyn CORONADO with REEMA III -HPV: negative -followed by accounting administrative assistant Vitamin D insufficiency 06/15/2018 Assessment & Plan [...] Description 07/21/2025 10:30 AM EDT Office Visit [address] [phone] Adelina Luke MD Routine general medical examination [...] 36.9 in adult 07/21/2025 Travel 07/19/[address] [address] Adelina Luke MD Insurance 07/18/2025 Travel 07/14/2025 Patient Outreach [address] [address] Adelina Luke MD Pre-visit Planning (SDOH screening completed on 01/25/2025) 06/14/[address] [address] Adelina Luke MD Appointment Request from Last [...] HPV/Cotest 07/31/2027 07/31/2022, 11/19, 01/29/2018 Lipid Panel 07/21/2030 07/21/2025, 12/19, 12/27/2020 DTaP/Tdap/Td Vaccines (3 - Td or [...] Procedure Name Priority Date/Time Associated Diagnosis Comments TSH W/REFLEX TO FT4 Routine 07/21/2025 1 1:29 AM EDT Class 2 obesity due to excess calories without serious comorbidity with body mass index (BMI) of 36.0 to 36.9 in adult COMPREHENSIVE METABOLIC PANEL Routine 07/21/2025 11:29 AM EDT Vitamin D insufficiency Class 2 obesity due to excess calories without serious comorbidity with body mass index (BMI) of 36.0 to 36.9 in adult VITAMIN D,25-OH,TOTAL,IA Routine 07/21/2025 11:29 AM EDT Vitamin D insufficiency HEMOGLOBIN A1C Routine 07/21/2025 11:29 AM EDT Screening for diabetes mellitus LIPID PANEL WITH REFLEX TO DIRECT LDL Routine 07/21/2025 11:29 AM EDT Hypertriglyceridemia BI MAMMOGRAM SCREENING TOMOSYNTHESIS BILATERAL Routine 09/03/2023 8:11 AM EDT THINPREP IMAGING PAP AND HPV MRNA E6/E7 WITH REFLEX TO HPV 16,18/45 Routine 07/31/2022 9:00 AM EDT from Last 3 Months or Most Recently Relevant to Health Maintenance Results * Vitamin D, 25-Hydroxy, Total, Immunoassay (07/21/2025 11:29 AM EDT) Vitamin D 25-OH Total 36.6 >30 ng/mL [facility] Comment: Health Based Reference Values*< 20 ng/mL Qgiaqtpwo25-39 ng/mL Insufficient> 30 ng/mL Sufficient*Kelly HUNTLEY. N [...] ORDERABLES Final Resul t Performing Organization Address City/[place] Hospital/ZIP Co de Phone Number [facility] [address] [place] [phone] * TSH with Reflex to Free T4 (07/21/2025 11:29 AM EDT) TSH reflex Free T4 1.64 0.32 - 4.0 uIU/mL [facility] Blood 07/21/2025 11:2 9 AM EDT 07/21/2025 1:28 PM EDT Adelina Luke MD LAB BLOOD ORDERABLES Final Resul t Performing Organization Address City/[facility] Hospital/ZIP Co de Phone Number [facility] [address] [place] [phone] * (ABNORMAL) Lipid Panel with Reflex to Direct LDL (07/21/2025 11:29 AM EDT) Triglycerides 344(H) <150 mg/dL [facility] Comment:Desirable Triglyceri de: less than 150 mg/dLBorderline High Triglyceride 150-199 mg/dLHigh Triglyceride: 200-499 mg/dLVery High Triglyceride: greater than or equal to 5OO mg/dL Cholesterol 233(H) <200 mg/dL [facility] Comment:Desirable Cholestero l: less than 200 mg/dLBorderline High Cholesterol: 200-239 mg/dLHigh Cholesterol: greater than 239 mg/dL LDL Cholesterol Calculated 126(H) <100 mg/dL [facility] Comment:Desirable LDL: less than 100 mg/dLNear Optimal/Above Optimal LDL: 110- 129 mg/dLBorderline High LDL: 130-159 mg/dLHigh LDL: 160-189 mg/dLVery High LDL: greater than or equal to 190 mg/dL HDL Cholesterol 39(L) >40 mg/dL [facility] Comment:Desirable HDL: great er than 40 mg/dL Note: This HDL assay may give artificially low results in patients with liver disease. Blood 07/21/2025 11:2 9 AM EDT 07/21/2025 1:28 PM EDT us Adelina Luke MD LAB BLOOD ORDERABLES Final Resul t [facility] [address] [place] [phone] * Hemoglobin A1c (07/21/2025 11:29 AM EDT) Hemoglobin A1c 5.3 <6.0 % [facility] Comment:Hemoglobin A1C Refer ence Range Adults: 4.8 - 6.0 % Non diabetic: < 6.0 % Goal: < 7.0 %Additional Action Suggested: > 8.0 %Note: Hemoglobin A1c results are invalid for patients with abnormal amounts of HbF. Blood transfusions may impact the HbA1c concentration in the patient sample. Estimated Average Glucose 105 mg/dL [facility] Comment:eAG = Estimated ave rage glucose which is %A1C expressed asaverage glucose, using the formula of the C7G-QjgsxilBlriamt Glucose study (ADAG), Diabetes Care, Vol.31,#8,2007 Blood Venous blood specimen / Unknown 07/21/2025 11:29 AM EDT 07/21/2025 1:28 PM EDT us Adelina Luke MD LAB BLOOD ORDERABLES Final Resul t [facility] [address] [place] [phone] * (ABNORMAL) Comprehensive Metabolic Panel (07/21/2025 11:29 AM EDT) Sodium 139 135 - 145 mmol/L [facility] Potassium 4.5 3.3 - 5.1 mmol/L [facility] Chloride 108 96 - 108 mmol/L [facility] Carbon Dioxide 25 22 - 29 mmol/L [facility] Anion Gap 11(L) 12 - 20 [facility] Urea Nitrogen (BUN) 10 9 - 16 mg/dL [facility] Creatinine, Serum 0.80 0.5 - 1.4 mg/dL [facility] Estimated Glomerular Filt Rate >60 [facility] Comment:Chronic Kidney Disea se: Estimated GFR < 60 mL/min/1.28v2Etomtg Kidney Disease: Estimated GFR < 15 mL/min/1.73m2 Glucose 99 60 - 115 mg/dL [facility] Calcium 8.9 8.4 - 10.2 mg/dL [facility] Bilirubin, Total 0.5 0.0 - 1.0 mg/dL [facility] Aspartate Amino Transferase 44(H) 5 - 31 U/L [facility] Alanine Aminotransferase 23 0 - 31 U/L [facility] Total Protein 7.5 6.5 - 8.0 g/dL [facility] Albumin Level 4.2 3.5 - 5.0 g/dL [facility] Alkaline Phosphatase 84 39 - 117 U/L [facility] Blood Venous blood specimen / Unknown 07/21/2025 11:29 AM EDT 07/21/2025 1:28 PM EDT us Adelina Luke MD LAB BLOOD ORDERABLES Final Resul t [facility] [address] [place] [phone] * BI Mammogram Screening Tomosynthesis Bilateral (09/03/2023 8:11 AM EDT) Anatomical Region Laterality Modality Breast Bilateral Mammography 09/03/2023 8:11 AM EDT Narrative 09/22/2023 12:39 PM EST [address] [place] [address] Mammography Report Signed Patient: Christianne Catalan MR#: [id number] : 1975 Acct:[id number] Age/Sex: 48 / F ADM Date: 09/03/23 Loc: HO.MAMMO Attending Dr: Adelina Luke MD Ordering Physician: Adelina Luke MD Results: 1Negative Date of Service: 09/03/23 Follow Up: 1 Year From Orig ina Mammogram Procedure(s): MM tomosynthesis screening BI Accession Number(s): [id number] cc: Adelina Luke MD EXAMINATION: MM SCREENING [...] in OV> 09/22/23 1235 DD/ 0811 TD/TT: Door Framer: Procedure Note [email or web address], Image - 09/23/2023 [facility] [address] [place], [place] [address] Mammography Report Signed Patient: Christianne CatalanMR#: [id number] : 1975Acct:[id number] Age/Sex: 48 / FADM Date: 09/03/23 Loc: HO.MAMMO Attending Dr: Adelina Luke MD Ordering Physician: Adelina Lukeults: 1Negative Date of Service: 09/03/23Follow Up: 1 Year From Orig inal Mammogram Procedure(s): MM tomosynthesis screening BI Accession Number(s): [id number] cc: Adelina Luke MD EXAMINATION: MM SCREENING [...] in OV> 09/22/23 1235 DD/ 0811 TD/TT: Door Framer: Adelina Luke MD [facility] PROCEDURES Edited Result - Final * (ABNORMAL) THINPREP TIS PAP AND HPV mRNA E6/E7 WITH REFLEX TO HPV 16,18/45 (07/31/2022 9:00 AM EDT) Clinical Information: None given [facility] COMMENT SEE COMMENT [facility]OUND[facility] ON [...] has been evaluated with computer assisted technology. [facility] Fish Worm Grower : SEE COMMENT [facility] Comment: HAI CORTES(ASCP) CT screening location: [place] [address] General Categorization: EPITHELIAL CELL ABNORMALITY(A) [facility] HPV nRNA E6/E7 Not Detected Not Detected [facility] Comment: Methodology: Paper Ruler-Mediated Amplification This assay detects E6/E7 viral messenger RNA (mRNA) from 14 high-risk HPV types (16,18,31,33,35,39,45,51,52,56,58,59,66,68). Cervical sources are required for HPV testing. If a vaginal source from a patient who has had a total hysterectomy with removal of cervix was submitted, please contact the testing laboratory for alternative testing options. For additional information, please refer to http://education.[employer]/faq/DEX435d4 (This link if provided for information/ educational purposes only.) Interpretation/R esult: Atypical Squamous Cells of Undetermined Significance (ASC-US)(A) [facility] LMP: 07/19/2022 [facility] PATHOLOGIST: SEE COMMENT FOUND ATFORMERLY [facility] Comment: Pedro Gaitan M.D., Board Certified in Anatomic and Clinical Pathology (electronic signature) Consulting Pathologist [facility] [address] [place] [phone] Prev. BX: CIN3 [facility] Prev. PAP: 2020 NOL/HPV - 2019 NIL HPV - 2018 ASCU [facility] SOURCE: None given [facility] Statement Of Adequacy: SEE COMMENT [facility] Comment: Satisfactory for evaluation. Endocervical/transformation zone component present. 07/31/2022 9:0 0 AM EDT us Kalyn Braxton CNM LAB PATHOLOGY ORDERABLES Final Result [facility] [address] [place] [address], from Last 3 Months or Most Recently Relevant to Health Maintenance Insurance [employer] Care Teams Publishing Editor Relationship Specialty Start Date End Date Adelina Luke MD [address] [place] [address] PCP - General Family Medicine 11/17/18
== END 2025-07-21 16:54 | disposition home or self-care (01) ==
LOC: HO.HHCLNP 16:53
PROVIDERS: Visit Provider Family Medicine
DX: Z01.419 Encounter for gynecological examination (general) (routine) without abnormal findings (principal); Z11.51 Encounter for screening for human papillomavirus (HPV)
CPT/HCPCS: 87626; 88175